=== PATIENT | male | born 1995 | race African-American/Black ===

== ENCOUNTER 2016-08-09 19:22 | Emergency (ER) | payer MEDICAID ==
[~2016-08-09] VITALS: Ht 185.4 cm; Wt 81.6 kg
[2016-08-09 19:25] VITALS: BP 135/86
== END 2016-08-09 20:01 | disposition home or self-care (01) ==
LOC: ER 19:26
DX: M25.511 Pain in right shoulder (principal); M25.512 Pain in left shoulder; M54.5 Low back pain; M54.2 Cervicalgia; V49.50XA Passenger injured in collision with unspecified motor vehicles in traffic accident, initial encounter; Y92.488 Other paved roadways as the place of occurrence of the external cause; Y93.89 Activity, other specified; Y99.8 Other external cause status
CPT/HCPCS: A4606; Z7610